=== PATIENT | female | born 1970 | race Caucasian/White ===

== ENCOUNTER 2018-05-20 15:00 | Inpatient (IN) | payer OTHER, MEDICAID ==
[2018-05-20 15:06] VITALS: BMI 23.6
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
[2018-05-20 16:16] LABS: BASO # 0.02 K/mm3 (0.0-2.0); BASO % 0.2 % (0.0-3.0); EOS # 0.1 (0.0-0.7); EOS % 0.7 % (1.5-5.0); HEMOGLOBIN 12.1 g/dL (12.0-16.0); LYMPH # 3.6 (1.2-3.4); LYMPH % 41.2 % (22.0-35.0); MEAN CELL VOLUME 88.6 fl (80.0-105.0); MEAN CORPUSCULAR HEMOGLOBIN 29.3 pg (25.0-35.0); MEAN CORPUSCULAR HGB CONC 33.1 g/dl (31.0-37.0); MONO # 0.3 (0.1-0.6); MONO % 3.6 % (1.0-6.0); RBC 4.13 10^6/uL (3.5-6.1); RED CELL DISTRIBUTION WIDTH 13.1 % (11.5-14.5); WHITE BLOOD COUNT 8.7 10^3/uL (4.5-11.0)
[2018-05-20 16:29] LABS: ALB/GLOB RATIO 1.4 (1.1-1.8); ALBUMIN 4.7 g/dL (3.0-4.8); ALT/SGPT 20 U/L (7-56); AST/SGOT 22 U/L (14-36); BLOOD UREA NITROGEN 16 mg/dL (7-21); CALCIUM 9.3 mg/dL (8.4-10.5); GFR NON-AFRICAN AMERICAN > 60
[2018-05-20] MEDS ORDERED: Morphine 4 mg/ml ISec IVP STA (16:35)
[2018-05-20] MEDS ORDERED: TDAP Vaccine 0.5 mL Syr IM ONE (17:19)
[2018-05-20 17:48] LABS: URINE BILIRUBIN NEGATIVE (NEGATIVE); URINE BLOOD LARGE (NEGATIVE); URINE GLUCOSE (UA) NEGATIVE (NEGATIVE); URINE LEUKOCYTE ESTERASE NEGATIVE Leu/uL (NEGATIVE); URINE PROTEIN 30 mg/dL (<30 mg/dL); URINE UROBILINOGEN 0.2 E.U./dL (<1 E.U./dL)
[2018-05-20 17:49] LABS: URINE APPEARANCE SL CLOUDY (CLEAR); URINE COLOR YELLOW (YELLOW)
[2018-05-20 18:01] LABS: URINE RBC TNTC /hpf (0-2); URINE WBC 0 - 2 /hpf (0-6)
[2018-05-20 18:02] LABS: URINE BACTERIA MOD /hpf
--- NOTE | 2018-05-20 18:02 | RAD ---
Date of service: 05/20/2018 PROCEDURE: CHEST RADIOGRAPH, 1 VIEW HISTORY: Posttraumatic rib pain. Anatomic area of interest: Not specified COMPARISON: None available. FINDINGS: LUNGS: Clear. PLEURA: No pneumothorax or pleural fluid seen. CARDIOVASCULAR: No aortic atherosclerotic calcification present. Normal. OSSEOUS STRUCTURES: No significant abnormalities. VISUALIZED UPPER ABDOMEN: Normal. OTHER FINDINGS: None. IMPRESSION: No active disease.
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
--- NOTE | 2018-05-20 18:05 | RAD ---
Date of service: 05/20/2018 PROCEDURE: Radiographs of the left tibia and fibula. HISTORY: s/p leg pain COMPARISON: May 20, 2018. TECHNIQUE: Frontal and lateral views obtained. FINDINGS: BONES: Known fractures of the distal tibia and fibula. Proximally the left tibia and fibula are unremarkable. JOINT SPACES: Unremarkable. OTHER FINDINGS: None. IMPRESSION: Known distal tibial and fibular fractures incompletely visible. More proximally these osseous structures are unremarkable.
[2018-05-20] MEDS ORDERED: Sodium Chloride 0.9% 1,000 ML IV STA (18:40)
[2018-05-20 19:13] LABS: INR 1.14; PARTIAL THROMBOPLASTIN TIME 26.9 Seconds (26.9-38.3); PROTHROMBIN TIME 12.7 SECONDS (9.4-12.5)
[2018-05-20] MEDS ORDERED: Ketamine 10 mg/ml Inj (20 ml) ONE (19:33)
[2018-05-20] MEDS ORDERED: Ketamine 50 mg/ml Inj (10 ml) IV STA (19:35)
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
[2018-05-20] MEDS ORDERED: Sodium Chloride 0.9% 1,000 ML IV SCH (20:15)
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
--- NOTE | 2018-05-20 20:37 | ED.MODSED ---
Proc Sedation PRE-PROCEDURE - Pre-Anesthesia Chief Complaint: Lower Extremity Problem/Injury Past Medical History: Medications Reviewed, Allergies Reviewed, Record Review Previous Surgies: Reviewed Family History/Social History: Reviewed - Physical Exam/Review of Systems Vital Signs Reviewed: Yes Cardiovascular: Regular Rate and Rhythm, Murmurs, Normal S1, S2 Respiratory/Chest: Clear to Auscultation, Good Air Exchange. denies: Respiratory Distress, Accessory Muscle Use Neurological: GCS=15, CN II-XII Intact, Speech Normal Abdomen: denies: Tenderness, Distention Mental Status: Alert and Oriented X 3 - Pre-Procedure Airway Assessment History of difficult intubation or surgical airway (i.e trach):: No Inability to extend neck:: No Mouth opening less than two finger breadth:: No Diagnosis of sleep apnea:: No Less than three finger breadth to hyoid bone:: No ASA Criteria: 1 - Healthy, normal. 2 - Mild systemic disease (No functional limitations, mildline obesity, DM withot complications, Hypertention). 3 - Severe systemic disease (Some functional limitation, stable angina, morbid obesity, controlled COPD/Asthma/CHF). 4 - Sever systemic disease constant threat to life (Unstable angina, active symptoms of COPD/Asthma, CHF/Hypertension. 5 - Moribund ASA Clarification: ASA I Mallampati (airway): Class I Time Out Process - Time Out Process Patient identification (MR# and name from ID Band): Yes Procedure verified: Yes Consent read aloud and agreed upon: Yes Correct Site/Side marked and visibe to team after prepping and draping (unless exempt): Yes Implants, special equipment and x-rays available: Yes Prophylactic antibiotic given (if applicable): Not Applicable Correct position: Yes Correct Team: Yes All team members are in agreement: Yes Proc Sedation INTRA-PROCEDURE - Medications Medications Given: Acetaminophen (Tylenol 325mg Tab) 650 mg PO Q4H PRN PRN Reason: Pain, moderate (4-7) Potassium Chloride (Potassium Chloride 10 Meq/100 Ml) 10 meq in 100 mls @ 50 mls/hr IVPB Q2H [facility]CO Stop: 05/20/18 22:59 Last Admin: 05/20/18 18:58 Dose: 50 mls/hr eMAR Start Stop Document 05/20/18 18:58 CD (Rec: 05/20/18 18:58 CD [id number]) Intravenous Solution Start Date 05/20/18 Start Time 18:58 End Date 05/20/18 End time 20:58 Total Infusion Time 120 Sodium Chloride (Sodium Chloride 0.9%) 1,000 mls @ 100 mls/hr IV .Q10H [facility] Ketamine HCl (Ketalar) 50 mg IV STAT STA Stop: 05/20/18 19:36 Sertraline HCl (Zoloft) 100 mg PO DAILY [facility] Discontinued Medications Sodium Chloride (Sodium Chloride 0.9%) 1,000 mls @ 999 mls/hr IV .Q1H1M STA Stop: 05/20/18 19:40 Last Admin: 05/20/18 18:59 Dose: 999 mls/hr eMAR Start Stop Document 05/20/18 18:59 CD (Rec: 05/20/18 18:59 CD [id number]) Intravenous Solution Start Date 05/20/18 Start Time 18:59 Ketorolac Tromethamine (Toradol) 30 mg IVP STAT STA Stop: 05/20/18 18:40 Last Admin: 05/20/18 18:58 Dose: 30 mg MAR Pain Assessment Document 05/20/18 18:58 CD (Rec: 05/20/18 18:58 CD [id number]) Pain Reassessment Is this a pain reassessment? No Sleep Is patient sleeping during reassessment? No Presence of Pain Presence of Pain Yes Pain Scale Used Protocol: [facility] Pain Scale Used Numeric Location Left, Right or Bilateral Left Pain Location Body Site Ankle IVP Administration Document 05/20/18 18:58 CD (Rec: 05/20/18 18:58 CD [id number]) Charges for Administration # of IVP Administrations 1 Morphine Sulfate (Morphine) 4 mg IVP STAT STA Stop: 05/20/18 16:36 Last Admin: 05/20/18 17:15 Dose: 4 mg MAR Pain Assessment Document 05/20/18 17:15 SRE (Rec: 05/20/18 17:19 SRE [id number]) Pain Reassessment Is this a pain reassessment? Yes Sleep Is patient sleeping during reassessment? No Presence of Pain Presence of Pain Yes Pain Scale Used Protocol: PSCALES Pain Scale Used Numeric Location Left, Right or Bilateral Left Pain Location Body Site Arm Description Description Intermittent IVP Administration Document 05/20/18 17:15 SRE (Rec: 05/20/18 17:19 SRE [id number]) Charges for Administration # of IVP Administrations 1 Re-Assess: [facility] Pain Assessment Document 05/20/18 18:15 SRE (Rec: 05/20/18 18:29 SRE [id number]) Pain Reassessment Is this a pain reassessment? Yes Sleep Is patient sleeping during reassessment? No Presence of Pain Presence of Pain Yes Pain Scale Used Protocol: PSCALES Pain Scale Used Numeric Location Left, Right or Bilateral Left Pain Location Body Site Leg Description Description Intermittent Tetanus/Reduced Diphtheria/Acell Pertussis (Boostrix Vaccine Inj) 0.5 ml IM .ONCE ONE Stop: 05/20/18 17:20 Last Admin: 05/20/18 18:56 Dose: 0.5 ml Immunization Registry Document 05/20/18 18:56 CD (Rec: 05/20/18 18:57 CD [id number]-Date provided 05/20/18 [facility] Immunization Data Document 05/20/18 18:56 CD (Rec: 05/20/18 18:57 CD [id number]) Immunization Data Vaccine Information Sheet Given Yes Proc Sedation POST-PROCEDURE - Post Procedure Physician Note Post Procedure Note: patient tolerated procedure well with normal vital signs - Discharge Checklist Written MD order for Discharge: No Vital signs assessed and are consistent with pre-procedure reading: Yes Voided (if applicable): No Minimal nausea, vomiting, and dizziness: No Ambulates to pre-procedural level: No Alert and oriented to pre-procedural level: Yes Responsible adult escort present: No DISCHARGE INSTRUCTIONS GIVEN:: N/A ED Procedural Sedation - Pre Anesthesia Assessment Chief Complaint: Lower Extremity Problem/Injury Last Known Meal: 7 hours ago Past Medical History: Medications Reviewed, Allergies Reviewed, Record Review Previous Surgies: Reviewed Family History/Social History: Reviewed - Physical Exam/Review of Systems Vital Signs Reviewed: Yes Cardiovascular: Regular Rate and Rhythm Respiratory/Chest: Clear to Auscultation, Good Air Exchange Neurological: GCS=15, CN II-XII Intact, Speech Normal, Motor Func Grossly Intact, Normal Sensory Function, Normal Cerebellar Funct Mental Status: Alert and Oriented X 3 - Pre-Procedure Airway Assessment History of difficult intubation or surgical airway (i.e trach):: No Inability to extend neck:: No Mouth opening less than two finger breadth:: No Diagnosis of sleep apnea:: No Less than three finger breadth to hyoid bone:: No ASA Criteria: 1 - Healthy, normal. 2 - Mild systemic disease (No functional limitations, mildline obesity, DM withot complications, Hypertention). 3 - Severe systemic disease (Some functional limitation, stable angina, morbid obesity, controlled COPD/Asthma/CHF). 4 - Sever systemic disease constant threat to life (Unstable angina, active symptoms of COPD/Asthma, CHF/Hypertension. 5 - Moribund ASA Clarification: ASA I Mallampati (airway): Class I Nursing ED Procedural Sedation: ER Moderate Sedation Start: 05/20/18 19:56 Freq: Status: Active Protocol: Document 05/20/18 19:35 IT (Rec: 05/20/18 20:01 IT [id number]) Mod Sedation Time Out Process Time Out Process Patient identification (MR# and name Yes from ID Band) Procedure verified Yes Consent read aloud and agreed upon Yes Correct Site/Side marked and visibe to Yes team after prepping and draping (unless exempt) Implants, special equipment and x-rays Yes available Prophylactic antibiotic given (if Not Applicable applicable) Correct position Yes Correct Team Yes All team members are in agreement Yes Pre-Procedure Mod Sedation Pre-Procedure Checklist Patient's identity verified by Patient stating name Patient stating [facility] Pre Procedure Checklist BP monitor Signed consent Ambu bag Patient IV Patient ID Code Cart End Tidal CO2 Suction set up Pre Anesthesia Assessment Chief Complaint Lower Extremity Problem/Injury Moderate Sedation VS & Pain Ax Level of Consciousness Level of Consciousness 1 = Alert Temperature Temperature (97.6 F-99.6 F) 98.2 F Pulse Pulse Rate (60-90 beats/min) 66 Respirations Respiratory Rate (12-24 breaths/min) 18 Oxygen Delivery Method Nasal Cannula SPO2 (95-100) 100 End Tidal CO2 36 Blood Pressure Blood Pressure (100/60-150/90 mm Hg) 118/78 Cardiac Rhythm Cardiac Rhythm NSR Pain Pain Intensity 10 Pain Scale Used Numeric Intra-Procedure Vital Signs Vital Signs and Pain Assessment Time 19:40 Blood Pressure (100/60-150/90 mm Hg) 104/54 Pulse Rate (60-90 beats/min) 57 Respiratory Rate (12-24 breaths/min) 18 End Tidal CO2 41 Level of Consciousness 4 = Difficult to Arouse, Inappropriate resp to Physical /Verbal Stimuli Cardiac Rhythm NSR Intra-Procedure Vital Signs #2 Vital Signs and Pain Assessment Time 19:43 Blood Pressure (100/60-150/90 mm Hg) 105/61 Pulse Rate (60-90 beats/min) 63 Respiratory Rate (12-24 breaths/min) 18 End Tidal CO2 39 Level of Consciousness 4 = Difficult to Arouse, Inappropriate resp to Physical /Verbal Stimuli Intra-Procedure Vital Signs #3 Vital Signs and Pain Assessment Time 19:46 Blood Pressure (100/60-150/90 mm Hg) 101/68 Pulse Rate (60-90 beats/min) 64 Respiratory Rate (12-24 breaths/min) 18 End Tidal CO2 42 Level of Consciousness 3 = Frequently Drowsy, Easy to Arouse Pain Intensity 8 Cardiac Rhythm NSR Intra-Procedure Vital Signs #4 Vital Signs and Pain Assessment Time 19:50 Blood Pressure (100/60-150/90 mm Hg) 100/62 Pulse Rate (60-90 beats/min) 65 Respiratory Rate (12-24 breaths/min) 18 End Tidal CO2 30 Level of Consciousness 4 = Difficult to Arouse, Inappropriate resp to Physical /Verbal Stimuli Pain Intensity 7 Cardiac Rhythm NSR Created 05/20/18 19:56 IT (Rec: 05/20/18 19:[address] [id number] - Intra-Procedure (Medications) Medications Given: Acetaminophen (Tylenol 325mg Tab) 650 mg PO Q4H PRN PRN Reason: Pain, moderate (4-7) Potassium Chloride (Potassium Chloride 10 Meq/100 Ml) 10 meq in 100 mls @ 50 mls/hr IVPB Q2H [facility] Stop: 05/20/18 22:59 Last Admin: 05/20/18 18:58 Dose: 50 mls/hr eMAR Start Stop Document 05/20/18 18:58 CD (Rec: 05/20/18 18:[address] [id number] Intravenous Solution Start Date 05/20/18 Start Time 18:58 End Date 05/20/18 End time 20:58 Total Infusion Time 120 Sodium Chloride (Sodium Chloride 0.9%) 1,000 mls @ 100 mls/hr IV .Q10H [facility] Ketamine HCl (Ketalar) 50 mg IV STAT STA Stop: 05/20/18 19:36 Sertraline HCl (Zoloft) 100 mg PO DAILY [facility] Discontinued Medications Sodium Chloride (Sodium Chloride 0.9%) 1,000 mls @ 999 mls/hr IV .Q1H1M STA Stop: 05/20/18 19:40 Last Admin: 05/20/18 18:59 Dose: 999 mls/hr eMAR Start Stop Document 05/20/18 18:59 CD (Rec: 05/20/18 18:59 CD [id number]) Intravenous Solution Start Date 05/20/18 Start Time 18:59 Ketorolac Tromethamine (Toradol) 30 mg IVP STAT STA Stop: 05/20/18 18:40 Last Admin: 05/20/18 18:58 Dose: 30 mg MAR Pain Assessment Document 05/20/18 18:58 CD (Rec: 05/20/18 18:58 CD [id number]) Pain Reassessment Is this a pain reassessment? No Sleep Is patient sleeping during reassessment? No Presence of Pain Presence of Pain Yes Pain Scale Used Protocol: [facility] Pain Scale Used Numeric Location Left, Right or Bilateral Left Pain Location Body Site Ankle IVP Administration Document 05/20/18 18:58 CD (Rec: 05/20/18 18:58 CD [id number]) Charges for Administration # of IVP Administrations 1 Morphine Sulfate (Morphine) 4 mg IVP STAT STA Stop: 05/20/18 16:36 Last Admin: 05/20/18 17:15 Dose: 4 mg MAR Pain Assessment Document 05/20/18 17:15 SRE (Rec: 05/20/18 17:19 SRE [id number]) Pain Reassessment Is this a pain reassessment? Yes Sleep Is patient sleeping during reassessment? No Presence of Pain Presence of Pain Yes Pain Scale Used Protocol: [facility] Pain Scale Used Numeric Location Left, Right or Bilateral Left Pain Location Body Site Arm Description Description Intermittent IVP Administration Document 05/20/18 17:15 SRE (Rec: 05/20/18 17:19 SRE [id number]) Charges for Administration # of IVP Administrations 1 Re-Assess: MAR Pain Assessment Document 05/20/18 18:15 SRE (Rec: 05/20/18 18:29 SRE [id number]) Pain Reassessment Is this a pain reassessment? Yes Sleep Is patient sleeping during reassessment? No Presence of Pain Presence of Pain Yes Pain Scale Used Protocol: [facility] Pain Scale Used Numeric Location Left, Right or Bilateral Left Pain Location Body Site Leg Description Description Intermittent Tetanus/Reduced Diphtheria/Acell Pertussis (Boostrix Vaccine Inj) 0.5 ml IM .ONCE ONE Stop: 05/20/18 17:20 Last Admin: 05/20/18 18:56 Dose: 0.5 ml Immunization Registry Document 05/20/18 18:56 CD (Rec: 05/20/18 18:57 CD [id number]-Date provided 05/20/18 MAR Immunization Data Document 05/20/18 18:56 CD (Rec: 05/20/18 18:57 CD [id number] Immunization Data Vaccine Information Sheet Given Yes - Post-Procedure Post Procedure Note: I was called for by podiatry to assist with procedural conscious sedation for patient undergoing closed reduction of patient with lower extremity fracture.
[2018-05-21 07:54] LABS: BASO # 0.01 K/mm3 (0.0-2.0); BASO % 0.1 % (0.0-3.0); EOS # 0.1 (0.0-0.7); EOS % 0.7 % (1.5-5.0); LYMPH # 1.9 (1.2-3.4); LYMPH % 24.7 % (22.0-35.0); MEAN CELL VOLUME 90.4 fl (80.0-105.0); MEAN CORPUSCULAR HEMOGLOBIN 29.5 pg (25.0-35.0); MEAN CORPUSCULAR HGB CONC 32.7 g/dl (31.0-37.0); MEAN PLATELET VOLUME 10.3 fl (7.0-11.0); MONO # 0.6 (0.1-0.6); MONO % 7.5 % (1.0-6.0); RBC 3.42 10^6/uL (3.5-6.1); RED CELL DISTRIBUTION WIDTH 13.5 % (11.5-14.5); WHITE BLOOD COUNT 7.5 10^3/uL (4.5-11.0)
[2018-05-21 07:56] LABS: HEMOGLOBIN 10.2 g/dL (12.0-16.0)
[2018-05-21 08:08] LABS: ALB/GLOB RATIO 1.1 (1.1-1.8); ALBUMIN 3.4 g/dL (3.0-4.8); ALT/SGPT 19 U/L (7-56); AST/SGOT 24 U/L (14-36); BLOOD UREA NITROGEN 9 mg/dL (7-21); CALCIUM 7.9 mg/dL (8.4-10.5); GFR NON-AFRICAN AMERICAN > 60
--- NOTE | 2018-05-21 10:48 | CT ---
Date of service: 05/20/2018 PROCEDURE: CT of the left ankle without contrast HISTORY: s/p close reduction/ankle fracture COMPARISON: Comparison is made with the previous x-ray of left ankle done on the same day. TECHNIQUE: Axial and reformatted coronal and sagittal CT images of the left ankle were obtained without contrast administration. 3D reformatted images of the left ankle were obtained. Total exam DLP: 389.27 FINDINGS: There are comminuted displaced and distracted fractures at the distal left tibia and fibula. There is medial angulation deformity at the distal tibial and fibular fractures.. The acute fracture at the distal left tibia extending to the articular surface of the tibiotalar joint. There is mild widening of the medial ankle mortise. Moderate soft tissue edema and soft tissue swelling noted around the left ankle likely due to soft tissue acute injury. No evidence of talar dome fracture or destruction. IMPRESSION: Acute comminuted distracted and angulated fractures at the distal left tibia and fibula. Mild widening of the medial ankle mortise. Moderate soft tissue swelling. Preliminary report was submitted by [facility] Radiology contains concordant findings.
[2018-05-21] MEDS ORDERED: HYDROmorphone 0.5 mg/0.5 ml ISec IVP PRN (12:03)
[2018-05-21] MEDS ORDERED: Lactated Ringer's 1,000 ML IV SCH (12:15)
[2018-05-21] MEDS ORDERED: Bupivacaine 0.5% 50 ML IJ ONE (13:03)
[2018-05-21] MEDS ORDERED: Propofol 10 mg/ml Inj (20 ML) ONE (13:08)
[2018-05-21] MEDS ORDERED: Midazolam 2 MG/2 ML VIAL ONE (13:09)
[2018-05-21] MEDS ORDERED: Rocuronium 10 mg/ml (5 ml) ONE (13:09)
[2018-05-21] MEDS ORDERED: Neostigmine Methylsulfate 3mg/3ml Syringe IV ONE (15:23)
[2018-05-21] MEDS ORDERED: Esmolol 100 mg/10ml Inj IV ONE (15:29)
--- NOTE | 2018-05-21 15:30 | RAD ---
Date of service: 05/20/2018 PROCEDURE: Left Ankle Radiographs. HISTORY: post reduction COMPARISON: Plain radiographs performed earlier the same day FINDINGS: BONES: Status post reduction, there is improved alignment of fracture fragments in the distal tibia and fibula. There is redemonstration of acute comminuted fractures in the distal tibia and fibula with lateral angulation of the lateral malleolus. JOINTS: Ankle mortise remains disrupted laterally. Talar dome intact SOFT TISSUES: Severe periarticular soft tissue swelling. OTHER FINDINGS: None. IMPRESSION: Status post closed reduction, improved alignment of fracture fragments in the distal tibia and fibula with persistent lateral angulation of the lateral malleolus. Persistent destruction of the lateral ankle mortise.
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
--- NOTE | 2018-05-21 16:02 | PCM.SURG1 ---
Surgeon's Initial Post Op Note - Surgeon's Notes Surgeon: Dr. Gildardo Lopez MD Carburetor Specialist: Dr. Cullen Perry, DPM; Dr. Aaron Bravo PGY2; Dr. Stacie Wood PGY1 Type of Anesthesia: General Endo Anesthesia Administered By: Dr. Corbin Pre-Operative Diagnosis: Displaced, comminuted distal tibia fracture. Displaced, comminuted distal fibular fracture Operative Findings: See dictation report. M - Synthes medial tibia plate with screws. Synthes anatomic fibula plate with screws. Vicryl, Ashvin. I- Postop: 30 cc 0.5% marcaine plain Post-Operative Diagnosis: Same Operation Performed: Open reduction internal fixation of left tibia fracture. Open reduction internal fixation of left fibula fracture Specimen/Specimens Removed: None Estimated Blood Loss: EBL {In ML}: 10 Blood Products Given: N/A Drains Used: No Drains Post-Op Condition: Good Date of Surgery/Procedure: 05/21/18 Time of Surgery/Procedure: 16:03
[2018-05-21] MEDS ORDERED: HYDROmorphone 0.5 mg/0.5 ml ISec IVP ONE (16:28)
[2018-05-21] MEDS ORDERED: HYDROmorphone 0.5 mg/0.5 ml ISec ONE (16:31)
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
[2018-05-21] MEDS ORDERED: Oxycodone/Acetaminophen 5/325 mg Tab ONE (16:49)
[2018-05-21] MEDS: Oxycodone/Acetaminophen 5/325 mg Tab PO PRN (16:50)
--- NOTE | 2018-05-21 17:25 | CARD ---
APPROVED REPORT Date of service: 05/20/2018 EKG Measurement Heart [id number] <Conclusion> Normal sinus rhythm Incomplete right bundle branch block Borderline ECG
--- NOTE | 2018-05-21 18:58 | RAD ---
Date of service: 05/21/2018 PROCEDURE: Fluoroscopy up to 1 hr HISTORY: O.R.I.F. OF LEFT ANKLE FX. COMPARISON: None TECHNIQUE: Standard protocol for this study/examination. FINDINGS: Total fluoroscopic time (continuous mode) utilized during the procedure 51.6 seconds. Total exam DLP: 0.77 (mGy). IMPRESSION: Less than 1 hr fluoroscopic assistance provided during performance of the procedure.
[2018-05-22] MEDS: Oxycodone/Acetaminophen 5/325 mg Tab PO PRN ×5 (01:44→23:56)
[2018-05-22 07:06] LABS: BASO # 0.01 K/mm3 (0.0-2.0); BASO % 0.1 % (0.0-3.0); EOS % 0.3 % (1.5-5.0); HEMOGLOBIN 9.6 g/dL (12.0-16.0); LYMPH # 2.1 (1.2-3.4); LYMPH % 20.1 % (22.0-35.0); MEAN CELL VOLUME 90.9 fl (80.0-105.0); MEAN CORPUSCULAR HEMOGLOBIN 29.2 pg (25.0-35.0); MEAN CORPUSCULAR HGB CONC 32.1 g/dl (31.0-37.0); MEAN PLATELET VOLUME 10.4 fl (7.0-11.0); MONO # 0.9 (0.1-0.6); MONO % 8.5 % (1.0-6.0); RBC 3.29 10^6/uL (3.5-6.1); RED CELL DISTRIBUTION WIDTH 13.5 % (11.5-14.5); WHITE BLOOD COUNT 10.5 10^3/uL (4.5-11.0)
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
[2018-05-22 07:17] LABS: ALB/GLOB RATIO 1.1 (1.1-1.8); ALBUMIN 3.3 g/dL (3.0-4.8); ALT/SGPT 11 U/L (7-56); AST/SGOT 21 U/L (14-36); BLOOD UREA NITROGEN 8 mg/dL (7-21); CALCIUM 8.1 mg/dL (8.4-10.5); GFR NON-AFRICAN AMERICAN > 60
[2018-05-22] MEDS ORDERED: Morphine 2 mg/ml ISec IM STA (10:12)
[2018-05-22] MEDS ORDERED: Morphine 2 mg/ml ISec IVP STA (10:38)
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
[2018-05-23 07:37] LABS: BASO # 0.01 K/mm3 (0.0-2.0); BASO % 0.1 % (0.0-3.0); EOS # 0.1 (0.0-0.7); EOS % 0.9 % (1.5-5.0); HEMOGLOBIN 9.9 g/dL (12.0-16.0); LYMPH # 1.6 (1.2-3.4); LYMPH % 19.5 % (22.0-35.0); MEAN CELL VOLUME 90.9 fl (80.0-105.0); MEAN CORPUSCULAR HEMOGLOBIN 28.9 pg (25.0-35.0); MEAN CORPUSCULAR HGB CONC 31.8 g/dl (31.0-37.0); MEAN PLATELET VOLUME 10.5 fl (7.0-11.0); MONO # 0.7 (0.1-0.6); MONO % 8.7 % (1.0-6.0); RBC 3.42 10^6/uL (3.5-6.1); RED CELL DISTRIBUTION WIDTH 13.5 % (11.5-14.5); WHITE BLOOD COUNT 8.4 10^3/uL (4.5-11.0)
[2018-05-23 07:52] LABS: ALB/GLOB RATIO 1.1 (1.1-1.8); ALBUMIN 3.5 g/dL (3.0-4.8); ALT/SGPT 17 U/L (7-56); AST/SGOT 26 U/L (14-36); BLOOD UREA NITROGEN 8 mg/dL (7-21); CALCIUM 8.3 mg/dL (8.4-10.5); GFR NON-AFRICAN AMERICAN > 60
[2018-05-23] MEDS: Oxycodone/Acetaminophen 5/325 mg Tab PO PRN ×3 (11:56→23:00)
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
[2018-05-24] MEDS: Oxycodone/Acetaminophen 5/325 mg Tab PO PRN ×3 (04:15→13:37)
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
[2018-05-24] MEDS ORDERED: oxyCODONE 5 mg Immediate Release Tab PO ONE (20:49)
[2018-05-25] MEDS ORDERED: Oxycodone/Acetaminophen 5/325 mg Tab PO STA (04:07)
[2018-05-25 08:32] LABS: BASO # 0.01 K/mm3 (0.0-2.0); BASO % 0.2 % (0.0-3.0); EOS # 0.1 (0.0-0.7); EOS % 1.5 % (1.5-5.0); HEMOGLOBIN 9.5 g/dL (12.0-16.0); LYMPH # 1.5 (1.2-3.4); LYMPH % 25.8 % (22.0-35.0); MEAN CELL VOLUME 90.6 fl (80.0-105.0); MEAN CORPUSCULAR HEMOGLOBIN 28.8 pg (25.0-35.0); MEAN CORPUSCULAR HGB CONC 31.8 g/dl (31.0-37.0); MEAN PLATELET VOLUME 9.9 fl (7.0-11.0); MONO # 0.5 (0.1-0.6); MONO % 8.5 % (1.0-6.0); RBC 3.3 10^6/uL (3.5-6.1); RED CELL DISTRIBUTION WIDTH 12.9 % (11.5-14.5)
[2018-05-25 08:57] LABS: ALB/GLOB RATIO 0.9 (1.1-1.8); ALBUMIN 3.2 g/dL (3.0-4.8); ALT/SGPT 17 U/L (7-56); AST/SGOT 20 U/L (14-36); BLOOD UREA NITROGEN 10 mg/dL (7-21); CALCIUM 8.5 mg/dL (8.4-10.5); GFR NON-AFRICAN AMERICAN > 60
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
[2018-05-25] MEDS: Oxycodone/Acetaminophen 5/325 mg Tab PO PRN ×2 (14:23→17:55)
[2018-05-25] MEDS: POLYETHYLENE GLYCOL 3350 17 GM/Dose PACKET PO SCH (14:23)
[2018-05-26] MEDS: Oxycodone/Acetaminophen 5/325 mg Tab PO PRN ×2 (05:26→14:19)
[2018-05-26] MEDS: POLYETHYLENE GLYCOL 3350 17 GM/Dose PACKET PO SCH (09:48)
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
[2018-05-26] MEDS: Docusate-Senna 50 mg-8.6 mg Tab PO SCH (22:23)
[2018-05-27] MEDS: Oxycodone/Acetaminophen 5/325 mg Tab PO PRN (06:38)
[2018-05-27] MEDS: POLYETHYLENE GLYCOL 3350 17 GM/Dose PACKET PO SCH (10:33)
[2018-05-27] MEDS: Enoxaparin 40 mg Syringe SC SCH (10:33)
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
[2018-05-27] MEDS: Docusate-Senna 50 mg-8.6 mg Tab PO SCH (21:25)
[2018-05-28] MEDS: Oxycodone/Acetaminophen 5/325 mg Tab PO PRN ×3 (05:02→14:50)
[2018-05-28 07:25] LABS: BASO # 0.01 K/mm3 (0.0-2.0); BASO % 0.2 % (0.0-3.0); EOS # 0.1 (0.0-0.7); HEMOGLOBIN 10.1 g/dL (12.0-16.0); LYMPH # 1.3 (1.2-3.4); LYMPH % 22.2 % (22.0-35.0); MEAN CELL VOLUME 90.3 fl (80.0-105.0); MEAN CORPUSCULAR HEMOGLOBIN 28.9 pg (25.0-35.0); MEAN CORPUSCULAR HGB CONC 32.1 g/dl (31.0-37.0); MEAN PLATELET VOLUME 8.7 fl (7.0-11.0); MONO # 0.5 (0.1-0.6); RBC 3.49 10^6/uL (3.5-6.1); RED CELL DISTRIBUTION WIDTH 12.7 % (11.5-14.5); WHITE BLOOD COUNT 5.6 10^3/uL (4.5-11.0)
[2018-05-28 07:53] LABS: BLOOD UREA NITROGEN 13 mg/dL (7-21); CALCIUM 9.3 mg/dL (8.4-10.5); GFR NON-AFRICAN AMERICAN > 60
[2018-05-28] MEDS: POLYETHYLENE GLYCOL 3350 17 GM/Dose PACKET PO SCH (10:07)
[2018-05-28] MEDS: Enoxaparin 40 mg Syringe SC SCH (10:07)
[2018-05-28] MEDS ORDERED: POLYETHYLENE GLYCOL 3350 17 GM/Dose PACKET PO PRN (10:12)
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
[2018-05-28] MEDS ORDERED: Oxycodone/Acetaminophen 5/325 mg Tab PO PRN (21:03)
[2018-05-28] MEDS: Docusate-Senna 50 mg-8.6 mg Tab PO SCH (21:22)
[2018-05-29] MEDS ORDERED: Oxycodone/Acetaminophen 5/325 mg Tab PO PRN (08:36)
[2018-05-29] MEDS: Enoxaparin 40 mg Syringe SC SCH (09:19)
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
[2018-05-30] MEDS: Enoxaparin 40 mg Syringe SC SCH (09:00)
[2018-05-30] MEDS ORDERED: Benzocaine/Menthol (Cepacol) Lozenge MT PRN (14:13)
[2018-05-30] MEDS ORDERED: guaiFENesin 100 mg/5 ml Syrup UD PO PRN (14:13)
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
[2018-05-31] MEDS: Enoxaparin 40 mg Syringe SC SCH (10:26)
[2018-05-31] MEDS: Oxycodone/Acetaminophen 5/325 mg Tab PO PRN ×2 (10:32→17:22)
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
[2018-06-01] MEDS: Oxycodone/Acetaminophen 5/325 mg Tab PO PRN ×2 (09:42→20:45)
[2018-06-01] MEDS: Enoxaparin 40 mg Syringe SC SCH (09:43)
[2018-06-01] MEDS: Lidocaine 5% Patch TD SCH (09:43)
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
[2018-06-02] MEDS: Enoxaparin 40 mg Syringe SC SCH (10:31)
[2018-06-02] MEDS: POLYETHYLENE GLYCOL 3350 17 GM/Dose PACKET PO SCH ×2 (10:31→18:36)
[2018-06-02] MEDS: Lidocaine 5% Patch TD SCH (10:32)
[2018-06-03 07:14] LABS: BASO # 0.01 K/mm3 (0.0-2.0); BASO % 0.2 % (0.0-3.0); EOS # 0.1 (0.0-0.7); EOS % 1.1 % (1.5-5.0); HEMOGLOBIN 10.2 g/dL (12.0-16.0); LYMPH # 1.6 (1.2-3.4); LYMPH % 29.2 % (22.0-35.0); MEAN CELL VOLUME 89.9 fl (80.0-105.0); MEAN CORPUSCULAR HEMOGLOBIN 28.6 pg (25.0-35.0); MEAN CORPUSCULAR HGB CONC 31.8 g/dl (31.0-37.0); MEAN PLATELET VOLUME 9.1 fl (7.0-11.0); MONO # 0.3 (0.1-0.6); MONO % 5.5 % (1.0-6.0); RBC 3.57 10^6/uL (3.5-6.1); RED CELL DISTRIBUTION WIDTH 12.6 % (11.5-14.5); WHITE BLOOD COUNT 5.3 10^3/uL (4.5-11.0)
[2018-06-03 07:16] LABS: ALBUMIN 3.7 g/dL (3.0-4.8); ALT/SGPT 22 U/L (7-56); AST/SGOT 25 U/L (14-36); BLOOD UREA NITROGEN 10 mg/dL (7-21); CALCIUM 9.1 mg/dL (8.4-10.5); GFR NON-AFRICAN AMERICAN > 60
[2018-06-03] MEDS: Enoxaparin 40 mg Syringe SC SCH (09:43)
[2018-06-03] MEDS: Lidocaine 5% Patch TD SCH (09:43)
[2018-06-03] MEDS: POLYETHYLENE GLYCOL 3350 17 GM/Dose PACKET PO SCH ×2 (09:43→17:46)
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
[2018-06-03 23:21] VITALS: TEMP 98
[2018-06-04] MEDS: POLYETHYLENE GLYCOL 3350 17 GM/Dose PACKET PO SCH ×2 (10:44→17:25)
[2018-06-04] MEDS: Lidocaine 5% Patch TD SCH (10:44)
[2018-06-04] MEDS: Enoxaparin 40 mg Syringe SC SCH (11:33)
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
[2018-06-04 15:18] VITALS: BP 94/55; PULSE 88; RESP 16; O2SAT 99
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
== END 2018-06-04 20:24 | DRG 493 ==
LOC: ED 15:00 → ERH 18:38 → 5RNO 21:19 → UNDODISIN 05-24 22:03
PROVIDERS: ADMIT Hospitalist; ATTEND Internal Medicine
PROC: 0QSKXZZ Reposition Left Fibula, External Approach (ICD-10-PCS; 2018-05-20)
PROC: 0QSHXZZ Reposition Left Tibia, External Approach (ICD-10-PCS; 2018-05-20)
PROC: 0QSK04Z Reposition Left Fibula with Internal Fixation Device, Open Approach (ICD-10-PCS; principal; 2018-05-21 12:00)
PROC: 0QSH04Z Reposition Left Tibia with Internal Fixation Device, Open Approach (ICD-10-PCS; 2018-05-21 12:00)
DX: S82.872A Displaced pilon fracture of left tibia, initial encounter for closed fracture (principal); D62 Acute posthemorrhagic anemia; S82.62XA Displaced fracture of lateral malleolus of left fibula, initial encounter for closed fracture; E87.6 Hypokalemia; F32.9 Major depressive disorder, single episode, unspecified; K59.00 Constipation, unspecified; R07.81 Pleurodynia; R05 Cough; Y93.01 Activity, walking, marching and hiking; V09.00XA Pedestrian injured in nontraffic accident involving unspecified motor vehicles, initial encounter; Y92.414 Local residential or business street as the place of occurrence of the external cause